=== PATIENT | female | born 1985 | race African-American/Black ===

== ENCOUNTER 2017-04-12 11:00 | Inpatient (IN) | payer OTHER ==
[~2017-04-12] VITALS: Ht 162.6 cm; Wt 70.3 kg
--- NOTE | ~2017-04-12 | HP ---
Unit #: [id number] #: [id number] Patient: SHEFALI WATTS [id number] [place] [address] [id number] I MR#: [id number] NAME: SHEFALI WATTS ROOM: [facility] Age: 32 Sex: F Admission Date: 04/12/2017 : 1985 Attending Physician: Pelon Parra M.D. Admitting Physician: Pelon Parra M.D. Primary Care Physician: Primary Care Physician No HISTORY AND PHYSICAL HISTORY OF PRESENT ILLNESS Shefali is a 32 year old, admitted because of her illicit substance abuse. She snorts heroin. PAST MEDICAL HISTORY History of illicit substance abuse to include snorting heroin. PAST SURGICAL HISTORY Nothing reported. ALLERGIES No known drug allergies. SOCIAL HISTORY She smokes one half pack per day, drinks, at least, two beers on a daily basis, has a history of illicit substance abuse to include snorting heroin. FAMILY HISTORY Medically noncontributory. REVIEW OF SYSTEMS CONSTITUTIONAL: No fever or chills. HEENT: Denies any sore throat, ear pain or runny nose. CARDIOVASCULAR: Denies chest pain, irregular heart rhythm or palpitations. CHEST: Denies shortness of breath or cough. No hemoptysis. GASTROINTESTINAL: Denies nausea, vomiting, diarrhea or chronic constipation. ENDOCRINE: Denies history of increased thirst or urination. No recent significant weight loss or gain. GENITOURINARY: Denies dysuria, frequency, or hematuria. SKIN: Denies any rashes. HEMATOLOGIC: Denies history of increased bleeding or bruising. MUSCULOSKELETAL: Denies any hot, swollen joints. No generalized muscle pain. NEUROLOGIC: Denies problems with vision or speech. No frequent, severe headaches. No numbness, tingling or weakness in any extremities. Denies loss of bladder or bowel control. CURRENT MEDICATIONS 1. Detox protocol 2. Wellbutrin XL 150 mg daily PHYSICAL EXAMINATION Unit #: [id number] #: [id number] Patient: SHEFALI WATTS GENERAL: Alert, well-nourished, no apparent distress. VITAL SIGNS: Blood pressure 104/68, heart rate 80, respirations 16, and temperature 98.6. WEIGHT: 155 pounds. HEIGHT: 5 feet 4 inches. SKIN: Warm and dry without rash or lesion. HEENT: Normocephalic. TMs not viewed. Oral and nasal passages clear. Conjunctivae clear. PERRLA. EOMs intact. NECK: Supple without lymphadenopathy or thyromegaly. HEART: Regular rate and rhythm without murmur. LUNGS: Clear. ABDOMEN: Soft, nontender. : Not done. EXTREMITIES: No evidence of cyanosis, clubbing or edema. Moves all without focal deficit. NEUROLOGICAL: Grossly within normal limits. Cranial Nerves: II: Visual newton are intact. III, IV AND : Extraocular movements are intact. Pupils are equal, round and reactive to light. V: Facial sensation is grossly normal. VII: Facial movements and expression are normal. VIII: Auditory acuity grossly intact. IX, X: Uvula is midline. Phonation is normal. XI: Patient shrugs shoulders and turns head normally. XII: Tongue protrudes in the midline. Sensory and Motor Function: Sensory and motor sensation is grossly normal. Motor: moves all extremities well. Coordination: Gait is normal. Deep Tendon Reflexes: Intact. IMPRESSION Psychiatric admission. RECOMMENDATIONS Psychiatric, per psychiatrist. MEDICAL I see no contraindications to participating in facility's activities. MEDICAL PROGNOSIS Good. MEDICAL CONDITION Stable. Dictated by... Emy Hahn PLouannALouann-Dragan. for Dary Meyers/viviana TD: 04/14/2017 12:29 JOB #: [id number] Unit #: [id number] #: [id number] Patient: SHEFALI WATTS HISTORY AND PHYSICAL Page 1 of 1 X Emy Hahn HISTORY AND PHYSICAL
--- NOTE | ~2017-04-12 | DS ---
Unit #: [id number] #: [id number] Patient: SHEFALI WATTS [id number] [place] [address] [id number] MR#: [id number] NAME: SHEFALI WATTS ROOM: 73 Age: 32 Sex: F Admission Date: 04/12/2017 : 1985 Discharge Date: 04/14/2017 Attending Physician: Pelon Parra M.D. Primary Care Physician: No Primary Care Physician DISCHARGE SUMMARY REASON FOR ADMISSION The patient is a 32-year-old white female who was admitted for opioid detox prior to entering residential chemical dependence treatment. HOSPITAL COURSE The patient is admitted to the [address] [place] [address] and placed on a routine detoxification protocol for opioids. She was seen by this physician on 04/13/2017. At that time she exhibited no signs or symptoms of withdrawal and was reporting a wish to leave for residential chemical dependence treatment the following day. As per her request, discharge is ordered. DISCHARGE DIAGNOSES Opioid use disorder, dysthymic disorder. DISPOSITION Discharged. DISCHARGE MEDICATIONS Wellbutrin XL 150 mg daily for depression. DIET AND ACTIVITY No dietary or physical restrictions were placed on the patient at the time of discharge. FOLLOWUP Will take place through the auspices of community mental health resources and residential chemical dependence facility in [place], [place]. PROGNOSIS The patient's prognosis is fair. Dictated by... Pelon Parra M.D. CB/wilder TD: 04/15/2017 11:46 JOB #: [id number] Unit #: [id number] #: [id number] Patient: SHEFALI WATTS DISCHARGE SUMMARY Page 1 of 1 X Pelon Parra MD X DISCHARGE SUMMARY
--- NOTE | ~2017-04-12 | PA ---
Unit #: [id number] #: [id number] Patient: SHEFALI WATTS [id number] [place] [address] [id number] MR#: [id number] NAME: SHEFALI WATTS ROOM: 73 Age: 32 Sex: F Admission Date: 04/12/2017 : 1985 Date of Assessment: 04/13/2017 Attending Physician: Pelon Parra M.D. Admitting Physician: Pelon Parra M.D. Primary Care Physician: Greta Primary Care Physician PSYCHIATRIC ASSESSMENT IDENTIFYING INFORMATION The patient is a 32-year-old, single, white female admitted to the [address] [place] [address] for opioid detox. CHIEF COMPLAINT Heroin. INFORMANT(S) Patient, reliability is good. HISTORY OF PRESENT ILLNESS The patient is a 32-year-old white female who reports a two year history of heroin abuse. She denies any history of intravenous drug abuse and denies use of other substances. Patient had been participating in the Intensive Outpatient Program at the [facility] but was continuing to use and is now scheduled to begin (1) chemical dependence treatment at the residential facility in [place], [place]. She is not exhibiting any signs of withdrawal when seen today. The patient was started on Wellbutrin XL 150 mg daily while in treatment at the [facility], stating that she has been having some symptoms of depression. She denies current suicidal or homicidal ideation and denies psychotic symptoms or complicated withdrawal. PAST PSYCHIATRIC HISTORY Noncontributory. PAST MEDICAL HISTORY Noncontributory. MEDICATIONS Wellbutrin XL. ALLERGIES None reported. FAMILY HISTORY Noncontributory. SOCIAL HISTORY The patient is currently living with her mother. She reports substance issues noted previously. She does not working outside of the home. MENTAL STATUS EXAMINATION Examination at this time reveals the patient to be a well-developed Unit #: [id number] #: [id number] Patient: SHEFALI WATTS well-nourished white female appearing her stated age. She is in no apparent physical distress at the time of the examination. She is awake, alert, and oriented in all spheres. Her mood is euthymic, reactive full range. Speech is generally well-coherent. There are no gross deficits in memory or cognition noted. Intelligence is judged to be in the average range, based on fund of knowledge. The patient is cooperative throughout the interview. She is currently denying suicidal or homicidal ideation, and denies any psychotic symptoms. Her judgment and insight appears to be intact. ASSETS AND LIABILITIES The patient's assets: Motivated to change. Liabilities: Lack of resources. DIAGNOSTIC IMPRESSION 1. Opioid use disorder. 2. Dysthymic disorder. TREATMENT PLAN The patient will be discharged in the morning to begin residential chemical dependence treatment in [place]. In the meantime she is on a routine detoxication protocol for opioids but is exhibiting little signs or symptoms. Dictated by... Pelon Parra M.D. ELIA/wilder TD: 04/15/2017 11:21 JOB #: [id number] PSYCHIATRIC ASSESSMENT Page 1 of 1 X Pelon Parra MD X PSYCHIATRIC ASSESSMENT
[2017-04-13 09:38] LABS: BASOPHIL# 0.1 X10e3 (0-0.3); BASOPHIL% 0.8 % (0-2.5); EOSINOPHIL# 0.7 X10e3 (0-0.7); EOSINOPHIL% 10.9 % (0.0-7.0); HEMATOCRIT 39.1 % (35.0-45.0); HEMOGLOBIN 13.3 gm/dL (12.0-16.0); LYMPHOCYTE# 1.8 X10e3 (1.0-3.5); MEAN CELL VOLUME 93.6 FL (83-96); MEAN CORPUSCULAR HEMOGLOBIN 31.9 PG (28-34); MEAN CORPUSCULAR HGB CONC 34.1 g/dL (30-36); MEAN PLATELET VOLUME 8.4 FL (6.5-11.5); MONOCYTE# 0.7 X10e3 (0-1.0); MONOCYTE% 11.3 % (3.0-12.0); NEUTROPHIL# 3.1 X10e3 (1.5-7.1); PLATELET COUNT 213 X10e3 (140-420); RED BLOOD COUNT 4.17 X10e (3.90-5.30); RED CELL DISTRIBUTION WIDTH 12.9 % (11.0-15.5); WHITE BLOOD COUNT 6.3 X10e3 (4.0-10.5)
[2017-04-13 09:43] LABS: DIFF IND NO
[2017-04-13 10:32] LABS: ALBUMIN SERUM 4.3 g/dL (3.5-5.0); BILIRUBIN,TOTAL 1.7 mg/dL (0.2-2.0); BUN/CREATININE RATIO 17.5; CALCIUM SERUM 9.4 mg/dL (8.4-10.2); CREATININE SERUM 0.8 mg/dL (0.6-1.4); GLOM FILT RATE Estimated 114.8 mL/min (>60); POTASSIUM 4.5 mmol/L (3.5-5.1); PROTEIN TOTAL SERUM 6.7 g/dL (6.0-8.3)
== END 2017-04-14 10:25 | DRG 897 ==
LOC: P1E 13:19
PROVIDERS: Specialist
PROC: HZ2ZZZZ Detoxification Services for Substance Abuse Treatment (ICD-10-PCS; principal; 2017-04-13)
DX: F11.20 Opioid dependence, uncomplicated (principal); F34.1 Dysthymic disorder; F17.210 Nicotine dependence, cigarettes, uncomplicated
CPT/HCPCS: 80053; 84703; 85025; 86592